=== PATIENT | male | born 1980 | race Caucasian/White ===

== ENCOUNTER → 2018-12-25 | Outpatient (CLI) | payer OTHER ==
[2018-12-25 14:38] LABS: Basophils # (A) 0.2 k/uL (0-0.2); Basophils % (A) 2 %; Eosinophils # (A) 0.2 k/uL (0-0.7); Eosinophils % (A) 2 %; HCT 46.9 % (39.0-53.0); HGB 16.4 gm/dL (13.0-17.5); Lymphocytes # (A) 1.2 k/uL (1.0-4.8); Lymphocytes % (A) 15 %; MCV 85.8 fL (80.0-100.0); Mean Platelet Volume 5.7; Monocytes # (A) 0.6 k/uL (0-1.0); Monocytes % (A) 7 %; Neutrophils # (A) 6.2 k/uL (1.3-7.7); Neutrophils % (A) 74 %; Platelet Count 210 k/uL (150-450); RBC 5.46 m/uL (4.30-5.90); RDW 12.9 % (11.5-15.5); WBC 8.4 k/uL (3.8-10.6)
[2018-12-25 18:51] LABS: African American GFR (CKD) 124.3 (60.0-200.0); Albumin 4.7 g/dL (3.80-4.90); Albumin/Globulin Ratio 2.14 (1.60-3.17); Anion Gap 8.6 mmol/L (4.00-12.00); BUN/Creat Ratio 14.44 Ratio (12.00-20.00); Calcium 9.5 mg/dL (8.7-10.3); Carbon Dioxide 25.4 mmol/L (21.6-31.8); Globulin 2.2 g/dL (1.6-3.3); Non-African American GFR(CKD) 107.2 (60.0-200.0); Potassium 4.1 mmol/L (3.5-5.5); Total Bilirubin 0.7 mg/dL (0.2-1.2); Total Protein 6.9 g/dL (6.2-8.2)
[2018-12-25 20:21] LABS: Hemoglobin A1C 5.2 % (4.0-6.0)
== END | disposition home or self-care (01) ==
LOC: LABWHC1 13:39
PROVIDERS: ATTEND Orthopaedic Surgery
DX: Z01.812 Encounter for preprocedural laboratory examination (principal); M16.11 Unilateral primary osteoarthritis, right hip
CPT/HCPCS: 36415; 80053; 83036; 85025; 87070

== ENCOUNTER 2024-08-11 11:37 | Inpatient (IN) | payer OTHER ==
--- NOTE | 2024-08-11 12:15 | ED ---
General Adult HPI - General Chief complaint: Upper Respiratory Infection Stated complaint: Coughing up blood Time Seen by Provider: 08/11/24 12:14 Source: patient, RN notes reviewed Mode of arrival: ambulatory Limitations: no limitations - History of Present Illness Initial comments: 43-year-old male presenting for episode of hemoptysis last night. States he had a stuffy nose and proceeded to take Afrin. States shortly after he coughed up mucus with streaks of dried red blood. States he had a small amount of dark red blood when he blew his nose this morning. He is otherwise asymptomatic. Denies chest pain, shortness of breath, sore throat, cough, fever. He is a non-smoker. Denies history of a blood clot. States he has no medical conditions and does not take any medications. States he was treated for strep throat about a month ago. - Related Data Home Medications Medication Instructions Recorded Confirmed predniSONE See Taper PO DIRECTED 08/11/24 08/11/24 Allergies Allergy/AdvReac Type Severity Reaction Status Date / Time No Known Allergies Allergy Verified 08/11/24 12:26 Review of Systems ROS Statement: Those systems with pertinent positive or pertinent negative responses have been documented in the HPI. ROS Other: All systems not noted in ROS Statement are negative. Past Medical History Past Medical History: No Reported History Past Surgical History: Orthopedic Surgery Past Psychological History: No Psychological Hx Reported Smoking Status: Never smoker Past Alcohol Use History: None Reported Past Drug Use History: None Reported General Exam Limitations: no limitations General appearance: alert, in no apparent distress Head exam: Present: atraumatic, normocephalic, normal inspection Eye exam: Present: normal appearance, PERRL, EOMI. Absent: scleral icterus, conjunctival injection, periorbital swelling ENT exam: Present: normal exam, mucous membranes moist Neck exam: Present: normal inspection. Absent: tenderness, meningismus, lymphadenopathy Respiratory exam: Present: normal lung sounds bilaterally. Absent: respiratory distress, wheezes, rales, rhonchi, stridor Cardiovascular Exam: Present: normal rhythm, tachycardia, normal heart sounds. Absent: systolic murmur, diastolic murmur, rubs, gallop, clicks Neurological exam: Present: alert, oriented X3 Psychiatric exam: Present: normal affect, normal mood Skin exam: Present: warm, dry, intact, normal color. Absent: rash Course Vital Signs 08/11/24 08/11/24 08/11/24 11:42 12:19 14:00 Temperature 97.9 F 98 F Pulse Rate 126 H 109 H Respiratory 22 18 16 Rate Blood Pressure 129/87 134/90 O2 Sat by Pulse 98 98 Oximetry EKG Findings - EKG Results: EKG: interpreted by KATHY (EKG reveals sinus tachycardia with inverted T waves in lead III. Ventricular rate 119 bpm, SD interval 141, QRS duration 94, QT/QTc 283/354) Medical Decision Making - Medical Decision Making Was pt. sent in by a medical professional or institution (, [facility], SENIOR SALES REPRESENTATIVE, urgent care, hospital, or [facility]...) When possible be specific @ -No Did you speak to anyone other than the patient for history (EMS, parent, family, police, friend...)? What history was obtained from this source @ -No Did you review nursing and triage notes (agree or disagree)? Why? @ -I reviewed and agree with nursing and triage notes Were old charts reviewed (outside hosp., previous admission, EMS record, old EKG, old radiological studies, urgent care reports/EKG's, [facility] records)? Report findings @ -No old charts were reviewed Differential Diagnosis (chest pain, altered mental status, abdominal pain women, abdominal pain men, vaginal bleeding, weakness, fever, dyspnea, syncope, headache, dizziness, GI bleed, back pain, seizure, CVA, palpatations, mental health, musculoskeletal)? @ -Bronchitis, allergic rhinitis, pulmonary embolism, pneumonia, tuberculosis, viral URI EKG interpreted by me (3pts min.). @ -As above X-rays interpreted by me (1pt min.). @ -Chest x-ray reveals no acute process CT interpreted by me (1pt min.). @ -CT angio revealed no pulmonary embolism however there is a moderate pericardial effusion U/S interpreted by me (1pt. min.). @ -None done What testing was considered but not performed or refused? (CT, X-rays, U/S, labs)? Why? @ -None What meds were considered but not given or refused? Why? @ -None Did you discuss the management of the patient with other professionals (professionals i.e. , [facility], SENIOR SALES REPRESENTATIVE, lab, RT, psych nurse, social work job titles, body care manager, teacher, payroll officer, manager of case management)? Give summary @ -I spoke with [facility] who accepts admission for pericardial effusion with cardiology consultation Was smoking cessation discussed for >3mins.? @ -No Was critical care preformed (if so, how long)? @ -No Were there social determinants of health that impacted care today? How? (Homelessness, low income, unemployed, alcoholism, drug addiction, transportati on, low edu. Level, literacy, decrease access to med. care, care home, rehab)? @ -No Was there de-escalation of care discussed even if they declined (Discuss DNR or withdrawal of care, Hospice)? DNR status @ -No What co-morbidities impacted this encounter? (DM, HTN, Smoking, COPD, CAD, Cancer, CVA, ARF, Chemo, Hep., AIDS, mental health diagnosis, sleep apnea, morbid obesity)? @ -None Was patient admitted / discharged? Hospital course, mention meds given and route, prescriptions, significant lab abnormalities, going to OR and other pertinent info. @ -Admitted. 43-year-old male presenting for episode of hemoptysis last night. States he was treated for strep approximately 1 month ago. Denies blood thinners. He is currently asymptomatic, denies chest pain or shortness of breath. Patient is afebrile and tachycardic at 126 bpm. Denies history of tachycardia. Patient is overall well-appearing, no acute distress. Provided with IV fluid bolus. Lab work remarkable for elevated D-dimer of 1.18, white blood cell count 10, hemoglobin normal at 13.8. Chest x-ray negative. CT angio revealed no pulmonary embolism however there is a moderate pericardial effusion. Discussed results with patient. Patient will be admitted to medicine with cardiology consultation. Echocardiogram ordered. Case was discussed with my ED attending Dr. Benitez. Undiagnosed new problem with uncertain prognosis? @ -No Drug Therapy requiring intensive monitoring for toxicity (Heparin, Nitro, Insulin, Cardizem)? @ -No Were any procedures done? @ -No Diagnosis/symptom? @ -Pericardial effusion Acute, or Chronic, or Acute on Chronic? @ -Acute Uncomplicated (without systemic symptoms) or Complicated (systemic symptoms)? @ -Uncomplicated Side effects of treatment? @ -No Exacerbation, Progression, or Severe Exacerbation? @ -No Poses a threat to life or bodily function? How? (Chest pain, [place], [place], pneumonia, PE, COPD, DKA, ARF, appy, cholecystitis, CVA, Diverticulitis, Homicidal, Suicidal, threat to staff... and all critical care pts) @ -Possibly - Lab Data Result diagrams: 08/11/24 12:24 08/11/24 12:24 Lab Results 08/11/24 08/11/24 08/11/24 Range/Units 12:18 12:24 12:24 WBC 10.73 H (4.50-10.00) 10*3/uL RBC 4.56 (4.40-5.60) 10*6/uL Hgb 13.8 (13.0-17.0) g/dL Hct 40.1 (39.6-50.0) % MCV 87.9 (80.0-97.0) fL MCH 30.3 (27.0-32.0) pg MCHC 34.4 (32.0-37.0) g/dL Plt Count 220 (140-440) 10*3/uL MPV 8.7 L (9.5-12.2) fL Immature Gran % (Auto) 0.5 % Neutrophils % 71.7 % Lymphocytes % 15.6 % Monocytes % 10.3 % Eosinophils % 1.5 % Basophils % 0.4 % Immature Gran # 0.05 H (0.00-0.04) 10*3/uL Neutrophils # 7.71 H (1.80-7.70) 10*3/uL Lymphocytes # 1.67 (0.90-5.00) 10*3/uL Monocytes # 1.10 H (0.20-1.00) 10*3/uL Eosinophils # 0.16 (0.04-0.35) 10*3/uL Basophils # 0.04 (0.00-0.10) 10*3/uL PT 11.0 (10.0-12.5) sec INR 1.0 (<1.2) APTT 25.7 (22.0-30.0) sec D-Dimer 1.18 H (<0.60) mg/L FEU Sodium (137-145) mmol/L Potassium (3.5-5.1) mmol/L Chloride (98-107) mmol/L Carbon Dioxide (22-30) mmol/L Anion Gap mmol/L BUN (9-20) mg/dL Creatinine (0.66-1.25) mg/dL Est GFR (CKD-EPI)AfAm (>60 ml/min/1.73 sqM) Est GFR (CKD-EPI)NonAf (>60 ml/min/1.73 sqM) Glucose (74-99) mg/dL Calcium (8.4-10.2) mg/dL Total Bilirubin (0.2-1.3) mg/dL AST (17-59) U/L ALT (4-49) U/L Alkaline Phosphatase (38-126) U/L Total Protein (6.3-8.2) g/dL Albumin (3.5-5.0) g/dL Influenza Type A (PCR) Not Detected (Not Detectd) Influenza Type B (PCR) Not Detected (Not Detectd) RSV (PCR) Not Detected (Not Detectd) SARS-CoV-2 (PCR) Not Detected (Not Detectd) 08/11/24 Range/Units 12:24 WBC (4.50-10.00) 10*3/uL RBC (4.40-5.60) 10*6/uL Hgb (13.0-17.0) g/dL Hct (39.6-50.0) % MCV (80.0-97.0) fL MCH (27.0-32.0) pg MCHC (32.0-37.0) g/dL Plt Count (140-440) 10*3/uL MPV (9.5-12.2) fL Immature Gran % (Auto) % Neutrophils % % Lymphocytes % % Monocytes % % Eosinophils % % Basophils % % Immature Gran # (0.00-0.04) 10*3/uL Neutrophils # (1.80-7.70) 10*3/uL Lymphocytes # (0.90-5.00) 10*3/uL Monocytes # (0.20-1.00) 10*3/uL Eosinophils # (0.04-0.35) 10*3/uL Basophils # (0.00-0.10) 10*3/uL PT (10.0-12.5) sec INR (<1.2) APTT (22.0-30.0) sec D-Dimer (<0.60) mg/L FEU Sodium 134 L (137-145) mmol/L Potassium 4.1 (3.5-5.1) mmol/L Chloride 99 (98-107) mmol/L Carbon Dioxide 27 (22-30) mmol/L Anion Gap 8 mmol/L BUN 14 (9-20) mg/dL Creatinine 1.00 (0.66-1.25) mg/dL Est GFR (CKD-EPI)AfAm >90 (>60 ml/min/1.73 sqM) Est GFR (CKD-EPI)NonAf >90 (>60 ml/min/1.73 sqM) Glucose 112 H (74-99) mg/dL Calcium 9.6 (8.4-10.2) mg/dL Total Bilirubin 0.9 (0.2-1.3) mg/dL AST 24 (17-59) U/L ALT 29 (4-49) U/L Alkaline Phosphatase 51 (38-126) U/L Total Protein 5.9 L (6.3-8.2) g/dL Albumin 3.6 (3.5-5.0) g/dL Influenza Type A (PCR) (Not Detectd) Influenza Type B (PCR) (Not Detectd) RSV (PCR) (Not Detectd) SARS-CoV-2 (PCR) (Not Detectd) Disposition Clinical Impression: Pericardial effusion Disposition: ADMITTED IP TO THIS HOSP Referrals: Aster Figueroa MD [Primary Care Provider] - 1-2 days Time of Disposition: 15:37
[2024-08-11] MEDS: SODIUM CHLORIDE 0.9% 1,000 ML IV STA (12:30)
[2024-08-11 12:50] LABS: Partial Thromboplastin Time 25.7 sec (22.0-30.0)
[2024-08-11 12:52] LABS: ALT 29 U/L (4-49); AST 24 U/L (17-59); African American GFR (CKD) >90 (>60 ml/min/1.73 sqM); Albumin 3.6 g/dL (3.5-5.0); Alkaline Phosphatase 51 U/L (38-126); Anion Gap 8 mmol/L; Blood Urea Nitrogen 14 mg/dL (9-20); Calcium 9.6 mg/dL (8.4-10.2); Carbon Dioxide 27 mmol/L (22-30); Chloride 99 mmol/L (98-107); Glucose 112 mg/dL (74-99); Non-African American GFR(CKD) >90 (>60 ml/min/1.73 sqM); Potassium 4.1 mmol/L (3.5-5.1); Sodium 134 mmol/L (137-145); Total Bilirubin 0.9 mg/dL (0.2-1.3); Total Protein 5.9 g/dL (6.3-8.2)
[2024-08-11 12:59] LABS: Influenza A Not Detected (Not Detectd); Influenza B Not Detected (Not Detectd); RSV Not Detected (Not Detectd)
--- NOTE | 2024-08-11 13:06 | XR ---
EXAMINATION TYPE: XR chest 2V DATE OF EXAM: 08/11/2024 12:45 PM COMPARISON: None. CLINICAL INDICATION: Male, 43 years old with history of hemoptysis, coughing up blood TECHNIQUE: XR chest 2V view(s) obtained. FINDINGS: The heart size is normal. The pulmonary vasculature is normal. The lungs are clear. Tracheobronchial tree as visualized appears normal IMPRESSION: 1. No acute pulmonary process. [facility], , 08/11/2024 1:04 PM
[2024-08-11 13:25] LABS: Basophils # (A) 0.04 10*3/uL (0.00-0.10); Basophils % (A) 0.4 %; Eosinophils # (A) 0.16 10*3/uL (0.04-0.35); Eosinophils % (A) 1.5 %; HCT 40.1 % (39.6-50.0); HGB 13.8 g/dL (13.0-17.0); Lymphocytes # (A) 1.67 10*3/uL (0.90-5.00); Lymphocytes % (A) 15.6 %; MCH 30.3 pg (27.0-32.0); MCHC 34.4 g/dL (32.0-37.0); MCV 87.9 fL (80.0-97.0); Mean Platelet Volume 8.7 fL (9.5-12.2); Monocytes % (A) 10.3 %; Neutrophils # (A) 7.71 10*3/uL (1.80-7.70); Neutrophils % (A) 71.7 %; Platelet Count 220 10*3/uL (140-440); RBC 4.56 10*6/uL (4.40-5.60); RDW 12.8 % (11.5-14.5); WBC 10.73 10*3/uL (4.50-10.00)
--- NOTE | 2024-08-11 14:22 | CT ---
EXAMINATION TYPE: CT angio chest DATE OF EXAM: 08/11/2024 COMPARISON: None CLINICAL INDICATION: Male, 43 years old with history of hemoptysis, elevated D-dimer; PHH, HEMOPTYSIS . ELEVATED D-DIMER TECHNIQUE: CTA scan of the thorax is performed with IV Contrast, patient injected with 100ml mL of Isovue 370, p ulmonary embolism protocol. MIP images are created and reviewed. CT DLP: [address] CTDI: mGy Automated exposure control for dose reduction was used. FINDINGS: LUNGS: The lungs are grossly clear, there is no concerning parenchymal mass or nodule identified. T here is no pleural effusion or pneumothorax seen. The tracheobronchial tree is patent. MEDIASTINUM: There is satisfactory enhancement of the pulmonary artery and its branches, there is no CT evidence for pulmonary embolism. There are no greater than 1 cm hilar or mediastinal lymph nodes. No pericardial effusion is seen. OTHER: There is a moderate pericardial effusion IMPRESSION: 1. NO PULMONARY EMBOLISM. 2. MODERATE PERICARDIAL EFFUSION [facility], , 08/11/2024 2:20 PM
[2024-08-11] MEDS ORDERED: KETOROLAC 15 MG/ML 1 ML VIAL IVP PRN (15:33)
[2024-08-11] MEDS ORDERED: ONDANSETRON 4 MG/2 ML VIAL IVP PRN (15:33)
[2024-08-11] MEDS ORDERED: NALOXONE 0.4 MG/ML 1 ML VIAL IV PRN (15:33)
[2024-08-11] MEDS: ACETAMINOPHEN TAB 325 MG TAB PO PRN (16:05)
--- NOTE | 2024-08-11 17:35 | P.HPIM ---
History of Present Illness H&P Date: 08/11/24 History of present illness; Patient is a 43-year-old male with no significant medical history presenting for episode of hemoptysis. Patient had 1 episode last night and states he had a stuffy nose and proceeded to take Afrin. He also states shortly after he coughed up mucus with streaks of dried red blood. This morning he had a small amount of dark red blood when he blew his nose. He has been taking prednisone for throat inflammation and irritation since occurrence of strep throat 1 to 2 months ago. He states that pain is worse while laying back and with deep inspiration. He is otherwise asymptomatic and denies chest pain, shortness of breath, sore throat, cough, fever. He is a non-smoker. He reports no other exposure to tuberculosis, no history of autoimmune disease or malignancy. States he has no medical conditions and does not take any medications. Spoke with the ER physician, patient admission was accepted by internal medicine service for treatment. REVIEW OF SYSTEMS: Pertinent positives and negatives noted in HPI. PHYSICAL EXAMINATION: VITAL SIGNS: Reviewed GENERAL: Resting comfortably in bed. CARDIOVASCULAR: S1 and S2 present. No murmurs, rubs, or gallops. PULMONARY: Chest is clear to auscultation, no wheezing, rhonchi, or crackles. ABDOMEN: Soft, nontender, nondistended. No palpable organomegaly. NEUROLOGICAL: Alert and oriented. Gross neurological examination with no apparent focal deficits. EXTREMITIES: No pedal edema. SKIN: No apparent rashes. ER FINDINGS: Labs significant for WBC 10.7, D-dimer 1.18, sodium 134, glucose 112, viral respiratory panel negative EKG independently interpreted showed sinus tachycardia heart rate of 119, QTc 35 4, no ST segment elevation or depression seen, nonspecific T wave abnormality. Chest x-ray done independently interpreted showed no acute cardiopulmonary process. CT angiogram chest with findings of no pulmonary embolism, moderate pericardial effusion ASSESSMENT AND PLAN: In summary, patient is a 43-year-old male with no significant medical history presenting for episode of hemoptysis. #Acute pericarditis with pericardial effusion CT angiogram chest with moderate pericardial effusion seen Continuous cardiac monitoring Echocardiogram ordered Troponin, TSH, coxsachie b, parvovirus b19, EBV, HIV, CMV, NILA, anti-CCP, compliments 3,4,50 , ESR, CRP, ANCAs, RF ordered Cardiology consulted #Hemoptysis, likely due to chronic throat inflammation - CT neck soft tissue w/ contrast Monitor CBC #Leukocytosis, likey do to steroid use -Monitor CBC Chronic Medical Conditions: -No home medications DVT ppx: Early ambulation Code status: Full code F: P.o. E: Replete as needed N: Regular diet A: Ambulatory Anticipated discharge time and place: Pending clinical course Ash Vieyra MD Internal Medicine Resident, PGY1 Dictation was produced using [employer] dictation software. Please excuse any grammatical, word or spelling errors. I saw and evaluated the patient during the vazquez and critical portions of this encounter, and discussed the case in detail with the resident author of this note, I agree with the Assessment and Plan, and my changes, if any, are highlighted in blue. Past Medical History Past Medical History: No Reported History Past Surgical History: Orthopedic Surgery Past Psychological History: No Psychological Hx Reported Smoking Status: Never smoker Past Alcohol Use History: None Reported Past Drug Use History: None Reported Medications and Allergies Home Medications Medication Instructions Recorded Confirmed Type predniSONE See Taper PO DIRECTED 08/11/24 08/11/24 History Allergies Allergy/AdvReac Type Severity Reaction Status Date / Time No Known Allergies Allergy Verified 08/11/24 12:26 Physical Exam Osteopathic Statement: *. No significant issues noted on an osteopathic struc tural exam other than those noted in the History and Physical/Consult. Vitals: Vital Signs Temp Pulse Resp BP Pulse Ox 08/11/24 15:45 100 F H 113 H 16 138/88 98 08/11/24 14:00 98 F 109 H 16 134/90 98 08/11/24 12:19 18 08/11/24 11:42 97.9 F 126 H 22 129/87 98 Intake and Output 08/11/24 08/11/24 08/11/24 06:59 14:59 22:59 Other: Weight 145.15 kg Results CBC & Chem 7: 08/11/24 12:24 08/11/24 12:24 Labs: Abnormal Lab Results - Last 24 Hours (Table) 08/11/24 08/11/24 08/11/24 Range/Units 12:24 12:24 12:24 WBC 10.73 H (4.50-10.00) 10*3/uL MPV 8.7 L (9.5-12.2) fL Immature Gran # 0.05 H (0.00-0.04) 10*3/uL Neutrophils # 7.71 H (1.80-7.70) 10*3/uL Monocytes # 1.10 H (0.20-1.00) 10*3/uL D-Dimer 1.18 H (<0.60) mg/L FEU Sodium 134 L (137-145) mmol/L Glucose 112 H (74-99) mg/dL Total Protein 5.9 L (6.3-8.2) g/dL
[2024-08-11 18:54] LABS: C Reactive Protein 6.4 mg/dL (<1.0)
--- NOTE | 2024-08-11 21:48 | CT ---
EXAMINATION TYPE: CT soft tissue neck w con DATE OF EXAM: 08/11/2024 6:30 PM COMPARISON: None. CLINICAL INDICATION: Male, 43 years old with history of painful swallowing, pericardial effusion, rec ent strep TECHNIQUE: Axial images at 3 mm thick sections. Reconstructed images in the coronal plane and sagitt al plane are reviewed. Contrast used:65 mL of Isovue 300 with IV Contrast, (none if empty) Oral contrast used: (none if empty) CT DLP: 316.2 mGycm, Automated exposure control for dose reduction was used. FINDINGS: Limited CT sections are obtained the lung apices. The lung apices appear clear. CT neck: The torus tubarius and fossa of Rosenmuller are normal. [employer] spaces are normal. Para nasal sinuses and mastoid air cells are clear. Parotid glands appear normal and symmetrical. Submandibular glands, are normal. Parapharyngeal spac es are normal. No suspicious enlarged adenopathy is evident. There may be some minimal fullness of the left wall of the hypopharynx extending towards the tonsilla r pillar. Direct visualization is recommended. Focal cortical) the time of exam cannot be evaluated Thyroid as visualized is normal. Osseous structures are normal. There is some mild loss of disc height at C5-6 C6-7. IMPRESSION: 1. There may be some mild wall thickening along the left hypopharynx extending from the tonsillar pil lar. Direct visualization recommended. 2. No discrete masses are identified. Abnormal adenopathy is not evident. [facility], , 08/11/2024 9:46 PM
[2024-08-11] MEDS: MELATONIN 3 MG TABLET PO PRN (22:23)
[2024-08-12 02:37] LABS: Rheumatoid Factor, Qnt <15 IU/mL (0-15)
[2024-08-12 04:10] LABS: EBV-EA (IgG) <0.2 AI; EBV-EBNA(IgG) >8.0; EBV-VCA (IgG) >8.0 AI; EBV-VCA (IgM) <0.2 AI
[2024-08-12 04:23] LABS: HIV 2 AB Non-Reactive (Non-Reactive); HIV AB P24 Non-Reactive (Non-Reactive); HIV P24 AG Non-Reactive (Non-Reactive)
[2024-08-12 06:46] LABS: HCT 38.4 % (39.6-50.0); HGB 12.9 g/dL (13.0-17.0); MCHC 33.6 g/dL (32.0-37.0); MCV 89.3 fL (80.0-97.0); Mean Platelet Volume 8.6 fL (9.5-12.2); Platelet Count 212 10*3/uL (140-440); RDW 12.6 % (11.5-14.5); WBC 8.27 10*3/uL (4.50-10.00)
[2024-08-12 07:19] LABS: African American GFR (CKD) >90 (>60 ml/min/1.73 sqM); Anion Gap 6 mmol/L; Blood Urea Nitrogen 12 mg/dL (9-20); Calcium 8.6 mg/dL (8.4-10.2); Carbon Dioxide 25 mmol/L (22-30); Chloride 105 mmol/L (98-107); Glucose 113 mg/dL (74-99); Non-African American GFR(CKD) >90 (>60 ml/min/1.73 sqM); Sodium 136 mmol/L (137-145)
[2024-08-12] MEDS: COLCHICINE 0.6 MG EACH PO SCH (09:19)
[2024-08-12] MEDS: INDOMETHACIN 25 MG CAP PO SCH (09:19)
--- NOTE | 2024-08-12 10:40 | P.PN ---
Subjective Progress Note Date: 08/12/24 History of present illness; Patient is a 43-year-old male with no significant medical history presenting for episode of hemoptysis. Patient had 1 episode last night and states he had a stuffy nose and proceeded to take Afrin. He also states blew his nose with mucus with streaks of dried red blood. This morning he had a small amount of dark red blood when he blew his nose. He has been taking prednisone for throat inflammation and irritation since occurrence of strep throat 1 to 2 months ago. He states that pain is worse while laying back and with deep inspiration. He is otherwise asymptomatic and denies chest pain, shortness of breath, sore throat, cough, fever. He is a non-smoker. He reports no other exposure to tuberculosis, no history of autoimmune disease or malignancy. States he has no medical conditions and does not take any medications. 08/12/2024patient seen and examined at bedside. He continues to endorse some neck pain while extending neck, otherwise no chest pain shortness of breath at this time. Continues to have throat irritation, able to swallow without issue. No further episodes of blood with mucus. REVIEW OF SYSTEMS: Pertinent positives and negatives noted in HPI. PHYSICAL EXAMINATION: VITAL SIGNS: Reviewed GENERAL: Resting comfortably in bed. NECK: No palpable lymph nodes, throat nonerythematous CARDIOVASCULAR: S1 and S2 present. No murmurs, rubs, or gallops. PULMONARY: Chest is clear to auscultation, no wheezing, rhonchi, or crackles. ABDOMEN: Soft, nontender, nondistended. No palpable organomegaly. NEUROLOGICAL: Alert and oriented. Gross neurological examination with no apparent focal deficits. EXTREMITIES: No pedal edema. SKIN: No apparent rashes. Today's significant FINDINGS: Labs significant for CBC unremarkable, ESR 34, CRP 6.4, rheumatological and infectious workup positive for EBV IgG, otherwise negative thus far CT soft tissue neck mild wall thickening along the left hypopharynx extending from the tonsillar pillar, no discrete masses or abnormal adenopathy. ASSESSMENT AND PLAN: In summary, patient is a 43-year-old male with no significant medical history presenting for episode of hemoptysis. #Acute pericarditis with pericardial effusion CT angiogram chest with moderate pericardial effusion seen Continuous cardiac monitoring Echocardiogram ordered Troponin, TSH, coxsachie b, parvovirus b19, EBV, HIV, CMV, NILA, anti-CCP, compliments 3,4,50 , ESR, CRP, ANCAs, RF, complete viral panal ordered Begin colchicine and Indocin Cardiology consulted - patient claims that he had strep throat few months ago #Hemoptysis, likely due to chronic throat inflammation #Paty-Mora virus infection, likely old - CT neck soft tissue w/ contrast w/ mild wall thickening along the left hypopharynx extending from the tonsillar pillar - positive for EBV IgG Monitor CBC Pulmonology consult for possible bronchoscopy #Leukocytosis, likey do to steroid use, improved Chronic Medical Conditions: -No home medications DVT ppx: Early ambulation Code status: Full code F: P.o. E: Replete as needed N: Regular diet A: Ambulatory Anticipated discharge time and place: Pending clinical course Ash Vieyra MD Internal Medicine Resident, PGY1 Dictation was produced using [employer] dictation software. Please excuse any grammatical, word or spelling errors. I have seen and evaluated the patient today. I reviewed the resident's note and agree. Changes are highlighted in blue font. Objective - Vital Signs Vital signs: Vital Signs Temp 98.0 F 08/12/24 04:18 Pulse 89 08/12/24 04:18 Resp 16 08/12/24 04:18 BP 123/78 08/12/24 04:18 Pulse Ox 98 08/12/24 04:18 FiO2 Intake & Output 08/11/24 08/11/24 08/12/24 06:59 18:59 06:59 Weight 145.15 kg 146.8 kg Other: # Voids 1 - Labs CBC & Chem 7: 08/12/24 06:06 08/12/24 06:06 Labs: Abnormal Lab Results - Last 24 Hours (Table) 08/11/24 08/11/24 08/11/24 Range/Units 12:24 12:24 12:24 WBC 10.73 H (4.50-10.00) 10*3/uL RBC (4.40-5.60) 10*6/uL Hgb (13.0-17.0) g/dL Hct (39.6-50.0) % MPV 8.7 L (9.5-12.2) fL Immature Gran # 0.05 H (0.00-0.04) 10*3/uL Neutrophils # 7.71 H (1.80-7.70) 10*3/uL Monocytes # 1.10 H (0.20-1.00) 10*3/uL ESR (0-15) mm/Hr D-Dimer 1.18 H (<0.60) mg/L FEU Sodium 134 L (137-145) mmol/L Glucose 112 H (74-99) mg/dL C-Reactive Protein (<1.0) mg/dL Total Protein 5.9 L (6.3-8.2) g/dL EBV Capsid Ag IgG Intrp (Negative) EBV Nuc Ag IgG Interp (Negative) 08/11/24 08/11/24 08/11/24 Range/Units 18:05 18:05 18:05 WBC (4.50-10.00) 10*3/uL RBC (4.40-5.60) 10*6/uL Hgb (13.0-17.0) g/dL Hct (39.6-50.0) % MPV (9.5-12.2) fL Immature Gran # (0.00-0.04) 10*3/uL Neutrophils # (1.80-7.70) 10*3/uL Monocytes # (0.20-1.00) 10*3/uL ESR 34 H (0-15) mm/Hr D-Dimer (<0.60) mg/L FEU Sodium (137-145) mmol/L Glucose (74-99) mg/dL C-Reactive Protein 6.4 H (<1.0) mg/dL Total Protein (6.3-8.2) g/dL EBV Capsid Ag IgG Intrp Positive A (Negative) EBV Nuc Ag IgG Interp Positive A (Negative) 08/12/24 Range/Units 06:06 WBC (4.50-10.00) 10*3/uL RBC 4.30 L (4.40-5.60) 10*6/uL Hgb 12.9 L (13.0-17.0) g/dL Hct 38.4 L (39.6-50.0) % MPV 8.6 L (9.5-12.2) fL Immature Gran # (0.00-0.04) 10*3/uL Neutrophils # (1.80-7.70) 10*3/uL Monocytes # (0.20-1.00) 10*3/uL ESR (0-15) mm/Hr D-Dimer (<0.60) mg/L FEU Sodium (137-145) mmol/L Glucose (74-99) mg/dL C-Reactive Protein (<1.0) mg/dL Total Protein (6.3-8.2) g/dL EBV Capsid Ag IgG Intrp (Negative) EBV Nuc Ag IgG Interp (Negative)
--- NOTE | 2024-08-12 13:24 | P.CRDCN ---
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 We have been asked to evaluate the patient for pericardial effusion. Patient gives history of having strep throat 1 month ago. He is also had some pressure in his chest on the upper anterior area. It is most severe when he takes a deep inhalation. He denies any pain when he moves forward. He does have some worsening of the pain when he lays back on the bed. He has been through at least 2 courses of prednisone. He also was concerned that he had a recent bouts of poison dash but it may be that he had a rash related to the strep throat. He denies history of tobacco use, alcohol use or illicit drug use. Blood pressure 130/79, heart rate 107, pulse ox 96% on room air. Patient presented to the hospital due to hemopty sis. -EKG: Sinus tachycardia no acute ST-T wave changes. -Chest x-ray: No acute process -CT soft tissue of the neck: Mild wall thickening along the left hypopharynx extending from the tonsillar pillar. No discrete masses identified. Abnormal adenopathy is not evident. -CTA chest: No pulmonary embolism. Moderate pericardial effusion. -Laboratory studies: WBC 10.7 now 8.2, hemoglobin 12.9, sed rate 34, CRP 6.4. Troponin negative x 1. Sodium 136, electrolytes otherwise are normal. Renal function normal. TSH 1.560. EBV IgG positive. Cepheid viral panel not detected. Group A strep not detected. -Home cardiac medications: None. Review Of Systems: At the time of my exam: CONSTITUTIONAL: Denies fever or chills. HEENT: Denies blurred vision, vision changes, or eye pain. Denies hemoptysis CARDIOVASCULAR: Denies chest pain. Denies orthopnea. Denies PND. Denies palpitations RESPIRATORY: Denies shortness of breath. GASTROINTESTINAL: Denies abdominal pain. Denies nausea or vomiting. HEMATOLOGIC: Denies bleeding disorders. GENITOURINARY: Denies any blood in urine. SKIN: Denies puritis. Denies rash. Physical examination: Gen: This is a 43-year-old male in no acute distress VS: reviewed HEENT: Head is atraumatic, normocephalic. Pupils equal, round. Sclerae is anicteric. NECK: Supple. No JVD. LUNGS: Clear to auscultation. No wheezes or rhonchi. No intercostal retractions. HEART: Regular rate and rhythm. No murmur. ABDOMEN: Soft No tenderness. EXTREMITIES: No pedal edema. No calf tenderness. NEUROLOGICAL: Patient is awake, alert and oriented x3. Assessment: Pericarditis, acute or subacute Moderate pericardial effusion Paty bar virus infection recent Plan: Start patient on colchicine 0.6 mg twice daily Start Indocin 25 mg 3 times daily Obtain 2-D echocardiogram and Doppler study to assess cardiac structure and function Further recommendations to follow based upon clinical course Thank you kindly for this consultation. Nurse practitioner note has been reviewed, I agree with documented findings and plan of care. Patient was seen and examined. Past Medical History Past Medical History: No Reported History History of Any Multi-Drug Resistant Organisms: None Reported Past Surgical History: Orthopedic Surgery Past Anesthesia/Blood Transfusion Reactions: No Reported Reaction Past Psychological History: No Psychological Hx Reported Smoking Status: Never smoker Past Alcohol Use History: None Reported Past Drug Use History: None Reported - Past Family History Mother Family Medical History: No Reported History Father Family Medical History: Cancer Medications and Allergies Home Medications Medication Instructions Recorded Confirmed Type predniSONE See Taper PO DIRECTED 08/11/24 08/11/24 History Allergies Allergy/AdvReac Type Severity Reaction Status Date / Time No Known Allergies Allergy Verified 08/11/24 12:26 Physical Exam Vitals: Vital Signs Temp Pulse Pulse Pulse Resp BP BP 08/12/24 04:18 98.0 F 89 16 123/78 08/12/24 00:44 16 08/11/24 22:58 98.4 F 97 16 138/89 08/11/24 20:50 16 08/11/24 19:44 98.3 F 109 H 16 138/89 08/11/24 18:07 99.1 F 115 H 115 H 16 130/81 08/11/24 16:52 99.1 F 107 H 16 134/84 08/11/24 16:09 112 H 16 131/85 08/11/24 15:45 100 F H 113 H 16 138/88 08/11/24 14:00 98 F 109 H 16 134/90 08/11/24 12:19 18 08/11/24 11:42 97.9 F 126 H 22 129/87 Pulse Ox 08/12/24 04:18 98 08/12/24 00:44 08/11/24 22:58 97 08/11/24 20:50 08/11/24 19:44 97 08/11/24 18:07 96 08/11/24 16:52 98 08/11/24 16:09 98 08/11/24 15:45 98 08/11/24 14:00 98 08/11/24 12:19 08/11/24 11:42 98 Intake and Output 08/11/24 08/12/24 08/12/24 22:59 06:59 14:59 Other: # Voids 1 Weight 145.15 kg 146.8 kg Results 08/12/24 06:06 08/12/24 06:06 Cardiac Enzymes 08/11/24 08/11/24 Range/Units 12:24 15:45 AST 24 (17-59) U/L Troponin I <0.012 (0.000-0.034) ng/mL Coagulation 08/11/24 Range/Units 12:24 PT 11.0 (10.0-12.5) sec APTT 25.7 (22.0-30.0) sec CBC 08/11/24 08/12/24 Range/Units 12:24 06:06 WBC 10.73 H 8.27 (4.50-10.00) 10*3/uL RBC 4.56 4.30 L (4.40-5.60) 10*6/uL Hgb 13.8 12.9 L (13.0-17.0) g/dL Hct 40.1 38.4 L (39.6-50.0) % Plt Count 220 212 (140-440) 10*3/uL Comprehensive Metabolic Panel 08/11/24 08/12/24 Range/Units 12:24 06:06 Sodium 134 L 136 L (137-145) mmol/L Potassium 4.1 4.0 (3.5-5.1) mmol/L Chloride 99 105 (98-107) mmol/L Carbon Dioxide 27 25 (22-30) mmol/L BUN 14 12 (9-20) mg/dL Creatinine 1.00 0.91 (0.66-1.25) mg/dL Glucose 112 H 113 H (74-99) mg/dL Calcium 9.6 8.6 (8.4-10.2) mg/dL AST 24 (17-59) U/L ALT 29 (4-49) U/L Alkaline Phosphatase 51 (38-126) U/L Total Protein 5.9 L (6.3-8.2) g/dL Albumin 3.6 (3.5-5.0) g/dL Current Medications Generic Name Dose Route Start Last Admin Trade Name Freq PRN Reason Stop Dose Admin Acetaminophen 650 mg 08/11/24 15:50 08/11/24 16:05 Acetaminophen Tab 325 Mg Tab PO 650 mg Q6HR PRN Administration Mild Pain or Fever > 100.5 Ketorolac Tromethamine 15 mg 08/11/24 15:33 Ketorolac 15 Mg/Ml 1 Ml Vial IVP 08/14/24 15:35 Q6HR PRN Moderate Pain (Scale 4 to 6) Melatonin 3 mg 08/11/24 22:13 08/11/24 22:23 Melatonin 3 Mg Tablet PO 3 mg HS PRN Administration Insomnia Naloxone HCl 0.2 mg 08/11/24 15:33 Naloxone 0.4 Mg/Ml 1 Ml Vial IV Q2M PRN Opioid Reversal Ondansetron HCl 4 mg 08/11/24 15:33 Ondansetron 4 Mg/2 Ml Vial IVP Q8HR PRN Nausea And Vomiting Intake and Output 08/11/24 08/12/24 08/12/24 22:59 06:59 14:59 Other: # Voids 1 Weight 145.15 kg 146.8 kg 08/12/24 06:06 08/12/24 06:06
--- NOTE | 2024-08-12 16:07 | P.CNPUL ---
History of Present Illness Consult date: 08/12/24 Requesting physician: Ash Vieyra Reason for consult: other (Blood-tinged sputum) Chief complaint: Hemoptysis History of present illness: This is a very pleasant 43-year-old male patient who has no significant past medical history. And no prescribed home medications. He did smoke lightly for about 10 years but quit 10 years ago. He presented here to the the emergency room yesterday after a 2-month history of sore throat. He states he has had strep throat in the past and it felt similar. He was treated in the outpatient setting on amoxicillin without much improvement. He was then on prednisone on 2 separate occasions without much improvement. He also thought he was coughing up blood that he felt was related to his sinuses as he had sinus congestion and was using Afrin nasal spray. He did state he had some throat and chest discomfort with deep inhalation. Chest x-ray showed no acute pulmonary process. CT angiogram ruled out pulmonary embolism. There is a moderate pericardial effusion. CT scan of the neck revealed a mild wall thickening along the left hypopharynx extending from the tonsillar pillar. No discrete masses identified. No abnormal adenopathy. White count 8.2. Hemoglobin 12.9. Platelets 212. Sodium 136. Potassium 4.0. Bicarb 25. BUN 12. Creatinine 0.91. Glucose 113. Rheumatoid factor was negative. NILA and a screen was negative. He did test positive for a probable previous Paty-Mora virus however his IgM is negative. Echocardiogram is pending. He is seen today in consultation on the selective care unit. He is currently sitting up in bed. Awake and alert in no acute distress. Maintaining good O2 saturations in the 90s on room air oxygen. No fever. No chills. No further blood from his nose and no productive sputum. Review of Systems REVIEW OF SYSTEMS: CONSTITUTIONAL: Denies any recent significant weight loss or weight gain. EYES: Denies change in vision. EARS, NOSE, MOUTH, THROAT: Positive for sore throat. Positive for sinus congestion and epistaxis. CARDIOVASCULAR: Positive for chest discomfort on deep inhalation, no palpitations or syncopal episodes. RESPIRATORY: Denies shortness of breath, cough, congestion or hemoptysis. GASTROINTESTINAL: Denies change in appetite, denies abdominal pain GENITOURINARY: Denies hematuria, denies infections. MUSKULOSKELETAL: Denies pain, denies swelling. INTEGUMENTARY: Denies rash, denies eczema. NEUROLOGICAL: Denies recent memory loss, no recent seizure activity. PSYCHIATRIC: Denies anxiety, denies depression. HEMATOLOGIC/LYMPHATIC: Denies anemia, denies enlarged lymph nodes. Past Medical History Past Medical History: No Reported History History of Any Multi-Drug Resistant Organisms: None Reported Past Surgical History: Orthopedic Surgery Past Anesthesia/Blood Transfusion Reactions: No Reported Reaction Past Psychological History: No Psychological Hx Reported Smoking Status: Never smoker Past Alcohol Use History: None Reported Past Drug Use History: None Reported - Past Family History Mother Family Medical History: No Reported History Father Family Medical History: Cancer Medications and Allergies Home Medications Medication Instructions Recorded Confirmed Type predniSONE See Taper PO DIRECTED 08/11/24 08/11/24 History Allergies Allergy/AdvReac Type Severity Reaction Status Date / Time No Known Allergies Allergy Verified 08/11/24 12:26 Physical Exam Vitals: Vital Signs Temp Pulse Pulse Pulse Resp BP BP 08/12/24 14:00 98 16 08/12/24 12:00 98 129/84 08/12/24 08:00 98.2 F 107 H 16 130/79 08/12/24 04:18 98.0 F 89 16 123/78 08/12/24 00:44 16 08/11/24 22:58 98.4 F 97 16 138/89 08/11/24 20:50 16 08/11/24 19:44 98.3 F 109 H 16 138/89 08/11/24 18:07 99.1 F 115 H 115 H 16 130/81 08/11/24 16:52 99.1 F 107 H 16 134/84 08/11/24 16:09 112 H 16 131/85 Pulse Ox 08/12/24 14:00 08/12/24 12:00 97 08/12/24 08:00 96 08/12/24 04:18 98 08/12/24 00:44 08/11/24 22:58 97 08/11/24 20:50 08/11/24 19:44 97 08/11/24 18:07 96 08/11/24 16:52 98 08/11/24 16:09 98 Intake and Output 08/12/24 08/12/24 08/12/24 06:59 14:59 22:59 Intake Total 118 Balance 118 Intake: Oral 118 Other: # Voids 1 Weight 146.8 kg GENERAL EXAM: Alert, active, pleasant 43-year-old male, on room air oxygen, comfortable in no apparent distress. HEAD: Normocephalic. EYES: Normal reaction of pupils, equal size. NOSE: Clear with pink turbinates. THROAT: No erythema or exudates. NECK: No masses, no JVD. CHEST: No chest wall deformity. LUNGS: Equal air entry with no crackles, wheeze, rhonchi or dullness. CVS: S1 and S2 normal with no audible murmur, regular rhythm. ABDOMEN: No hepatosplenomegaly, normal bowel sounds, no guarding or rigidity. SPINE: No scoliosis or deformity SKIN: No rashes CENTRAL NERVOUS SYSTEM: No focal deficits, tone is normal in all 4 extremities. EXTREMITIES: There is no peripheral edema. No clubbing, no cyanosis. Peripheral pulses are intact. Results - Laboratory Findings CBC and BMP: 08/12/24 06:06 08/12/24 06:06 PT/INR, D-dimer PT 11.0 sec (10.0-12.5) 08/11/24 12:24 INR 1.0 (<1.2) 08/11/24 12:24 D-Dimer 1.18 mg/L FEU (<0.60) H 08/11/24 12:24 Abnormal lab findings: Abnormal Labs 08/11/24 08/11/24 08/11/24 12:24 12:24 12:24 WBC 10.73 H RBC Hgb Hct MPV 8.7 L Immature Gran # 0.05 H Neutrophils # 7.71 H Monocytes # 1.10 H ESR D-Dimer 1.18 H Sodium 134 L Glucose 112 H C-Reactive Protein Total Protein 5.9 L EBV Capsid Ag IgG Intrp EBV Nuc Ag IgG Interp 08/11/24 08/11/24 08/11/24 18:05 18:05 18:05 WBC RBC Hgb Hct MPV Immature Gran # Neutrophils # Monocytes # ESR 34 H D-Dimer Sodium Glucose C-Reactive Protein 6.4 H Total Protein EBV Capsid Ag IgG Intrp Positive A EBV Nuc Ag IgG Interp Positive A 08/12/24 08/12/24 06:06 06:06 WBC RBC 4.30 L Hgb 12.9 L Hct 38.4 L MPV 8.6 L Immature Gran # Neutrophils # Monocytes # ESR D-Dimer Sodium 136 L Glucose 113 H C-Reactive Protein Total Protein EBV Capsid Ag IgG Intrp EBV Nuc Ag IgG Interp - Diagnostic Findings Chest x-ray: image reviewed CT scan - chest: image reviewed Assessment and Plan Assessment: Chest discomfort on deep inhalation secondary to suspected viral myocarditis. Moderate pericardial effusion noted on CT scan. Echocardiogram pending Recent viral syndrome, rhinitis/pharyngitis and failed outpatient therapy with amoxicillin and steroids. Possible recent Paty-Mora virus however IgM is negative Nasal congestion and drainage with bleeding from the nose. No evidence of hemoptysis Mild wall thickening along the left hypothenar hypopharynx extending from the tonsillar pillar. No discrete masses identified. No adenopathy Former smoker however quit 10 years ago Plan: The patient was seen and evaluated All imaging, labs and medications reviewed Most likely sinus drainage and epistaxis versus hemoptysis CT scan of the neck reviewed Recommend outpatient workup with ENT Echocardiogram pending Possible viral myocarditis Continue Colcrys Continue Indocin Stable and on room air oxygen We will continue to follow and make further recommendations based on his clinic al status I have personally seen and examined the patient, performed the documentation and the assessment and plan as written. Number of minutes spent on the visit: 20 Dictation was produced using [employer] dictation software. Please excuse any grammatical, word or spelling errors. Time with Patient: Greater than 30
--- NOTE | 2024-08-12 19:15 | CA ---
Transthoracic Echo Report Name: Quinton Parnell Age: 43 Gender: M : 1980 Exam Date: 08/12/2024 15:00 Exam Location: [facility] Ht (in): 77 Wt (lb): 320 Ordering Physician: Grace Barragan Attending/Referring Phys: Process Engineer Shira Vargas RDCS Procedure CPT: Indications: pericardial effusion Cardiac Hx: Technical Quality: Fair Contrast 1: Definity Total Dose (mL): 2 Contrast 2: Total Dose (mL): MEASUREMENTS (Male / Female) Normal Values 2D ECHO LV Diastolic Diameter PLAX 6.3 cm 4.2 - 5.9 / 3.9 - 5.3 cm LV Systolic Diameter PLAX 5.2 cm IVS Diastolic Thickness 0.9 cm 0.6 - 1.0 / 0.6 - 0.9 cm LVPW Diastolic Thickness 0.9 cm 0.6 - 1.0 / 0.6 - 0.9 cm LV Relative Wall Thickness 0.3 RV Internal Dim ED PLAX 2.3 cm LA Systolic Diameter LX 4.0 cm 3.0 - 4.0 / 2.7 - 3.8 cm LV Diastolic Volume MOD 4C 168.1 cm??? LV Systolic Volume MOD 4C 108.8 cm??? LV Ejection Fraction MOD 4C 35.3 % LV Cardiac Index MOD 4C 2034.2 cm???/min???m??? LV Diastolic Length 4C 9.9 cm LV Systolic Length 4C 8.5 cm M-MODE Aortic Root Diameter MM 3.4 cm LA Systolic Diameter MM 3.7 cm LA Ao Ratio MM 1.1 AV Cusp Separation MM 2.5 cm DOPPLER TR Peak Velocity 238.2 cm/s TR Peak Gradient 22.7 mmHg FINDINGS Left Ventricle Left ventricular ejection fraction is estimated at 30-35 %. Mildly increased left ventricular diastolic diameter. Mild left ventricular dilatation. Severely reduced global left ventricular systolic function. Right Ventricle Mild right ventricular dilatation. Right ventricular systolic pressure within normal limits. Right Atrium Mild right atrial dilatation. Left Atrium Mild left atrial dilatation. Mitral Valve Structurally normal mitral valve. Mild mitral regurgitation. No mitral stenosis. Aortic Valve Trileaflet aortic valve. No aortic stenosis. No aortic regurgitation. Tricuspid Valve Structurally normal tricuspid valve. mild tricuspid regurgitation. No tricuspid stenosis. Pulmonic Valve Structurally normal pulmonic valve. No pulmonic regurgitation. No pulmonic stenosis. Pericardium Mild-Moderate pericardial effusion. No pleural effusion. Aorta Normal size aortic root and proximal ascending aorta. CONCLUSIONS Definity ECHO contrast used for improved visualization of the endocardial borders (inadequate visualization of two or more contiguous segments). Severe global hypokinesis of the left ventricle with dilated left ventricle Mild mitral and tricuspid regurgitation Small to moderate pericardial effusion Previewed by: Dr. Harry Carrion MD (Electronically Signed) Final Date: 12 August 2024 19:14
[2024-08-13 06:12] LABS: HCT 40.1 % (39.6-50.0); MCH 31.2 pg (27.0-32.0); MCHC 34.9 g/dL (32.0-37.0); MCV 89.3 fL (80.0-97.0); Mean Platelet Volume 8.5 fL (9.5-12.2); Platelet Count 238 10*3/uL (140-440); RBC 4.49 10*6/uL (4.40-5.60); RDW 12.2 % (11.5-14.5)
[2024-08-13 06:34] LABS: African American GFR (CKD) >90 (>60 ml/min/1.73 sqM); Anion Gap 6 mmol/L; Blood Urea Nitrogen 13 mg/dL (9-20); Carbon Dioxide 25 mmol/L (22-30); Chloride 105 mmol/L (98-107); Glucose 99 mg/dL (74-99); Non-African American GFR(CKD) >90 (>60 ml/min/1.73 sqM); Potassium 4.3 mmol/L (3.5-5.1); Sodium 136 mmol/L (137-145)
[2024-08-13] MEDS: DAPAGLIFLOZIN PROPANEDIOL 10 MG TABLET PO SCH (12:02)
[2024-08-13] MEDS: METOPROLOL SUCCINATE (ER) 25 MG TAB.ER.24H PO SCH (12:02)
[2024-08-13] MEDS: lisinopriL 5 MG TAB PO SCH (12:03)
[2024-08-13 12:17] LABS: C-ANCA <1:20 Titer (<1:20)
--- NOTE | 2024-08-13 12:38 | P.PN ---
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 We have been asked to evaluate the patient for pericardial effusion. Patient gives history of having strep throat 1 month ago. He is also had some pressure in his chest on the upper anterior area. It is most severe when he takes a deep inhalation. He denies any pain when he moves forward. He does have some worsening of the pain when he lays back on the bed. He has been through at least 2 courses of prednisone. He also was concerned that he had a recent bouts of poison dash but it may be that he had a rash related to the strep throat. He denies history of tobacco use, alcohol use or illicit drug use. Blood pressure 130/79, heart rate 107, pulse ox 96% on room air. Patient presented to the hospital due to hemoptysis. -EKG: Sinus tachycardia no acute ST-T wave changes. -Chest x-ray: No acute process -CT soft tissue of the neck: Mild wall thickening along the left hypopharynx extending from the tonsillar pillar. No discrete masses identified. Abnormal adenopathy is not evident. -CTA chest: No pulmonary embolism. Moderate pericardial effusion. -Laboratory studies: WBC 10.7 now 8.2, hemoglobin 12.9, sed rate 34, CRP 6.4. Troponin negative x 1. Sodium 136, electrolytes otherwise are normal. Renal function normal. TSH 1.560. EBV IgG positive. Cepheid viral panel not detected. Group A strep not detected. -Home cardiac medications: None. 08/13/2024 Patient seen and examined. Echocardiogram reveals EF 30-35%. Severe global hypokinesis of the left ventricle with dilated left ventricle. Mild mitral and tricuspid regurgitation. Small to moderate pericardial effusion. Patient is had no previous echocardiogram for comparison. He states he is not really feeling any better with the colchicine and Indocin. He seemed to get more relief from prednisone. Blood pressure 120/77, heart rate 92, pulse ox 97% on room air. Results of echocardiogram reviewed with the patient. Physical examination: Gen: This is a 43-year-old male in no acute distress VS: reviewed HEENT: Head is atraumatic, normocephalic. Pupils equal, round. Sclerae is anicteric. NECK: Supple. No JVD. LUNGS: Clear to auscultation. No wheezes or rhonchi. No intercostal retractions. HEART: Regular rate and rhythm. No murmur. ABDOMEN: Soft No tenderness. EXTREMITIES: No pedal edema. No calf tenderness. NEUROLOGICAL: Patient is awake, alert and oriented x3. Assessment: Pericarditis, acute or subacute Small to moderate pericardial effusion Paty bar virus infection recent Cardiomyopathy possibly secondary to viral infection Plan: Continue patient on colchicine 0.6 mg twice daily and Indocin 25 mg 3 times daily Plan to monitor patient overnight and discharge home tomorrow. Further recommendations to follow based upon clinical course Nurse practitioner note has been reviewed, I agree with documented findings and plan of care. Patient was seen and examined. Objective - Vital Signs Vital signs: Vital Signs Temp 97.7 F 08/13/24 04:00 Pulse 84 08/13/24 04:00 Resp 18 08/13/24 04:00 BP 110/68 08/13/24 04:00 Pulse Ox 97 08/13/24 04:00 FiO2 Intake & Output 08/12/24 08/13/24 08/13/24 18:59 06:59 18:59 Intake Total 898 30 Balance 898 30 Weight 144.9 kg Intake: IV 30 0.9 10 Invasive Line 1 20 Oral 898 Other: # Voids 2 - Labs CBC & Chem 7: 08/13/24 05:37 08/13/24 05:37 Labs: Abnormal Lab Results - Last 24 Hours (Table) 08/13/24 08/13/24 Range/Units 05:37 05:37 MPV 8.5 L (9.5-12.2) fL Sodium 136 L (137-145) mmol/L
--- NOTE | 2024-08-13 13:01 | P.PN ---
Subjective Progress Note Date: 08/13/24 Principal diagnosis: Chest discomfort. This is a very pleasant 43-year-old male patient who has no significant past medical history. And no prescribed home medications. He did smoke lightly for about 10 years but quit 10 years ago. He presented here to the the emergency room yesterday after a 2-month history of sore throat. He states he has had strep throat in the past and it felt similar. He was treated in the outpatient setting on amoxicillin without much improvement. He was then on prednisone on 2 separate occasions without much improvement. He also thought he was coughing up blood that he felt was related to his sinuses as he had sinus congestion and was using Afrin nasal spray. He did state he had some throat and chest discomfort with deep inhalation. Chest x-ray showed no acute pulmonary process. CT angiogram ruled out pulmonary embolism. There is a moderate pericardial effusion. CT scan of the neck revealed a mild wall thickening along the left h ypopharynx extending from the tonsillar pillar. No discrete masses identified. No abnormal adenopathy. White count 8.2. Hemoglobin 12.9. Platelets 212. Sodium 136. Potassium 4.0. Bicarb 25. BUN 12. Creatinine 0.91. Glucose 113. Rheumatoid factor was negative. NILA and a screen was negative. He did test positive for a probable previous Paty-Mora virus however his IgM is negative. Echocardiogram is pending. He is seen today in consultation on the selective care unit. He is currently sitting up in bed. Awake and alert in no acute distress. Maintaining good O2 saturations in the 90s on room air oxygen. No fever. No chills. No further blood from his nose and no productive sputum. Progress note dated August 13, 2024. This is a 43-year-old male who we saw in consultation yesterday. Please see the consultation above. The patient came into the hospital complaining of strep throat. The patient was treated, but apparently did not improve. Here in the hospital, he had an echocardiogram which showed a pericardial effusion. In addition, he complained of coughing up blood, but in actuality, it was probably blood from a nosebleed. His chest x-ray showed no acute pulmonary process. CT angiogram ruled out PE. On CT scan of the neck area, it revealed a mild wall thickening along the left hypopharynx, extended into the tonsillar pillar. Direct visualization was recommended. Today he is sitting in the chair, next to the hospital bed. He is on room air. No IV fluids. He was given both indomethacin, and colchicine, by cardiology. Current labs include a white count 8.2, hemoglobin 14, hematocrit 40.1, platelet count 238,000. Sodium 136, potassium 4.3, chlorides 105, CO2 25, BUN 13, creatinine 0.97. TSH was normal. Objective - Vital Signs Vital signs: Vital Signs Temp 97.8 F 08/13/24 12:25 Pulse 88 08/13/24 12:25 Resp 18 08/13/24 12:25 BP 130/88 08/13/24 12:25 Pulse Ox 96 08/13/24 12:25 FiO2 Intake & Output 08/12/24 08/13/24 08/13/24 18:59 06:59 18:59 Intake Total 898 30 240 Balance 898 30 240 Weight 144.9 kg Intake: IV 30 0.9 10 Invasive Line 1 20 Oral 898 240 Other: # Voids 2 1 - Exam No acute distress, oriented 3. HEENT examination is grossly unremarkable. Mucous membranes are moist. No oral lesions. Neck supple. Full range of motion. No adenopathy thyromegaly or neck vein distention. Cardiovascular examination reveals regular rhythm rate. S1-S2 normal. No S3 or S4. No discernible murmur noted. Lungs reveal clear breath sounds. Breath sounds are equal bilaterally. No adventitious lung sounds including wheezes rhonchi or crackles. Abdomen soft bowel sounds are heard. No masses or tenderness. Extremities are intact. No cyanosis clubbing or edema. Skin is without rash or lesion. Neurologic examination is brief but nonfocal. - Labs CBC & Chem 7: 08/13/24 05:37 08/13/24 05:37 Labs: Abnormal Lab Results - Last 24 Hours (Table) 08/13/24 08/13/24 Range/Units 05:37 05:37 MPV 8.5 L (9.5-12.2) fL Sodium 136 L (137-145) mmol/L Assessment and Plan Assessment: Chest discomfort on deep inhalation secondary to suspected viral myocarditis. Moderate pericardial effusion noted on CT scan. Recent viral syndrome, rhinitis/pharyngitis and failed outpatient therapy with amoxicillin and steroids. Possible recent Paty-Mora virus however IgM is negative. Nasal congestion and drainage with bleeding from the nose. No evidence of hemoptysis. Mild wall thickening along the left hypothenar hypopharynx extending from the tonsillar pillar. No discrete masses identified. No adenopathy. Former smoker however quit 10 years ago. Plan: Plan dated August 13, 2024. The patient is sitting in a chair next to the hospital bed, room 353. He is on room air. No IV fluids. The patient is feeling a bit better today. He was started on indomethacin, and colchicine, by cardiology. Labs, x-rays, and medications are reviewed. We will continue to follow. The patient is stable from the pulmonary standpoint. He denies any shortness of breath, cough, wheezing, chest tightness, or phlegm production. Prognosis is guarded. Dictation was produced using [employer] software. Please excuse any grammatical, word or spelling errors. Time with Patient: Less than 30
--- NOTE | 2024-08-13 13:21 | P.PN ---
Subjective Progress Note Date: 08/13/24 History of present illness; Patient is a 43-year-old male with no significant medical history presenting for episode of hemoptysis. Patient had 1 episode last night and states he had a stuffy nose and proceeded to take Afrin. He also states blew his nose with mucus with streaks of dried red blood. This morning he had a small amount of dark red blood when he blew his nose. He has been taking prednisone for throat inflammation and irritation since occurrence of strep throat 1 to 2 months ago. He states that pain is worse while laying back and with deep inspiration. He is otherwise asymptomatic and denies chest pain, shortness of breath, sore throat, cough, fever. He is a non-smoker. He reports no other exposure to tuberculosis, no history of autoimmune disease or malignancy. States he has no medical conditions and does not take any medications. 08/12/2024patient seen and examined at bedside. He continues to endorse some neck pain while extending neck, otherwise no chest pain shortness of breath at this time. Continues to have throat irritation, able to swallow without issue. No further episodes of blood with mucus. 08/13/2024patient seen and examined at bedside. Patient is feeling well no other complaints. No chest pain or shortness of breath. REVIEW OF SYSTEMS: Pertinent positives and negatives noted in HPI. PHYSICAL EXAMINATION: VITAL SIGNS: Reviewed GENERAL: Resting comfortably in bed. NECK: No palpable lymph nodes, throat nonerythematous CARDIOVASCULAR: S1 and S2 present. No murmurs, rubs, or gallops. PULMONARY: Chest is clear to auscultation, no wheezing, rhonchi, or crackles. ABDOMEN: Soft, nontender, nondistended. No palpable organomegaly. NEUROLOGICAL: Alert and oriented. Gross neurological examination with no apparent focal deficits. EXTREMITIES: No pedal edema. Today's significant FINDINGS: Labs significant for CBC and BMP unremarkable Echocardiogram with findings of EF 30 to 35%, severe global hypokinesis of the left ventricle and dilated left ventricle, mild mitral and tricuspid regurgitation, small to moderate pericardial effusion ASSESSMENT AND PLAN: In summary, patient is a 43-year-old male with no significant medical history presenting for episode of hemoptysis. #Acute pericarditis with pericardial effusion #New CHF with systolic dysfunction, EF 30 to 35% CT angiogram chest with moderate pericardial effusion seen Continuous cardiac monitoring Echocardiogram EF 30 to 35%, severe global hypokinesis of the left ventricle and dilated left ventricle, mild mitral and tricuspid regurgitation, small to moderate pericardial effusion Troponin, TSH, coxsachie b, parvovirus b19, HIV, CMV, NILA, anti-CCP, compliments 3,4,50 , ESR, CRP, ANCAs, RF, complete viral panel are WNL thus far, positive for EBV IgG Continue colchicine and Indocin Begin Farxiga 10 mg daily, lisinopril 5 mg daily, metoprolol 25 mg daily Cardiology following #Epistaxis, with recent viral syndrome rhinitis/pharyngitis #Paty-Mora virus infection, likely old - CT neck soft tissue w/ contrast w/ mild wall thickening along the left hypopharynx extending from the tonsillar pillar - positive for EBV IgG Monitor CBC Pulmonology consult, no bronchoscopy at this time, follow-up with ENT #Leukocytosis, likey do to steroid use, improved Chronic Medical Conditions: -No home medications DVT ppx: Early ambulation Code status: Full code F: P.o. E: Replete as needed N: Regular diet A: Ambulatory Anticipated discharge time and place: Home, tomorrow Ash Vieyra MD Internal Medicine Resident, PGY1 Dictation was produced using [employer] dictation software. Please excuse any grammatical, word or spelling errors. I have seen and evaluated the patient today. Discussed with the resident and agree with the residents finding and plan as documented in the resident's note. Changes highlighted in blue font. Objective - Vital Signs Vital signs: Vital Signs Temp 97.7 F 08/13/24 04:00 Pulse 84 08/13/24 04:00 Resp 18 08/13/24 04:00 BP 110/68 08/13/24 04:00 Pulse Ox 97 08/13/24 04:00 FiO2 Intake & Output 08/12/24 08/13/24 08/13/24 18:59 06:59 18:59 Intake Total 898 30 Balance 898 30 Weight 144.9 kg Intake: IV 30 0.9 10 Invasive Line 1 20 Oral 898 Other: # Voids 2 - Labs CBC & Chem 7: 08/13/24 05:37 08/13/24 05:37 Labs: Abnormal Lab Results - Last 24 Hours (Table) 08/13/24 08/13/24 Range/Units 05:37 05:37 MPV 8.5 L (9.5-12.2) fL Sodium 136 L (137-145) mmol/L
[2024-08-14 04:39] LABS: Parvovirus B-19 IgG Antibodies 3.93 INDEX (<=0.90); Parvovirus B-19 IgM Antibodies 0.28 INDEX (<=0.90)
[2024-08-14 08:53] VITALS: BP 121/76; PULSE 109; RESP 16; TEMP 98.2
--- NOTE | 2024-08-14 09:13 | P.DS ---
Providers Date of admission: 08/11/24 15:22 Expected date of discharge: 08/14/24 Attending physician: hCina Arevalo MD Consults: 08/11/24 15:33 Consult Physician Urgent Consulting Provider: [facility] Consult Reason/Comments: Pericardial effusion Do you want consulting provider notified?: Yes 08/12/24 09:43 Consult Physician Routine Consulting Provider: Ash Jiménez Consult Reason/Comments: hemotysis Do you want consulting provider notified?: Yes Primary care physician: Aster Figueroa MD Hospital Course: Discharge diagnoses; #Acute pericarditis with pericardial effusion #New CHF with systolic dysfunction, EF 30 to 35% #Epistaxis, with recent viral syndrome rhinitis/pharyngitis #Paty-Mora virus infection, likely old #Leukocytosis, likey do to steroid use Hospital course; History of present illness; Patient is a 43-year-old male with no significant medical history presenting for episode of hemoptysis. Patient had 1 episode last night and states he had a stuffy nose and proceeded to take Afrin. He also states blew his nose with mucus with streaks of dried red blood. This morning he had a small amount of dark red blood when he blew his nose. He has been taking prednisone for throat inflammation and irritation since occurrence of strep throat 1 to 2 months ago. He states that pain is worse while laying back and with deep inspiration. He is otherwise asymptomatic and denies chest pain, shortness of breath, sore throat, cough, fever. He is a non-smoker. He reports no other exposure to tuberculosis, no history of autoimmune disease or malignancy. States he has no medical conditions and does not take any medications. During hospital stay patient was treated for acute pericarditis with pericardial effusion. Echocardiogram with findings of EF 30 to 35%, severe global hypokinesis of the left ventricle and dilated left ventricle, mild mitral and tricuspid regurgitation, small to moderate pericardial effusion. EBV IgG was positive, however unable to determine timing of infection. He was seen by cardiology and started on colchicine and Indocin. He had no other episodes of epistaxis. CT neck soft tissue w/ contrast w/ mild wall thickening along the left hypopharynx extending from the tonsillar pillar. He was seen by pulmonology who recommended follow-up with ENT. Patient discharged home in stable condition. He will continue lisinopril 5 mg daily, metoprolol 25 mg daily, colchicine 0.6 mg twice daily. Continue Indocin 25 mg 3 times daily and can discontinue with symptomatic improvement. He will need to follow-up with PCP and cardiology, and ENT. PHYSICAL EXAMINATION: VITAL SIGNS: Reviewed GENERAL: Resting comfortably in bed. NECK: No palpable lymph nodes, throat nonerythematous CARDIOVASCULAR: S1 and S2 present. No murmurs, rubs, or gallops. PULMONARY: Chest is clear to auscultation, no wheezing, rhonchi, or crackles. ABDOMEN: Soft, nontender, nondistended. No palpable organomegaly. NEUROLOGICAL: Alert and oriented. Gross neurological examination with no apparent focal deficits. EXTREMITIES: No pedal edema. Ash Vieyra MD Internal Medicine Resident, PGY1 Dictation was produced using [employer] dictation software. please excuse any grammatical, word or spelling errors. A total of 38 minutes of time were spent preparing this complex discharge summary. Patient was discharged on 08/14/2024 at 841. I have seen and evaluated the patient today. Discussed with the resident and agree with the residents finding and plan as documented in the resident's note. Changes highlighted in blue font Patient Condition at Discharge: Stable Plan - Discharge Summary Discharge Rx Participant: Yes New Discharge Prescriptions: New Indomethacin [Indocin] 25 mg PO TID #90 cap Metoprolol Succinate (ER) [Toprol XL] 25 mg PO DAILY #30 tab lisinopriL [Zestril] 5 mg PO DAILY #30 tab Colchicine [Colcrys] 0.6 mg PO BID #60 each Discontinued predniSONE See Taper PO DIRECTED Discharge Medication List Colchicine [Colcrys] 0.6 mg PO BID #60 each 08/14/24 [Rx] Indomethacin [Indocin] 25 mg PO TID #90 cap 08/14/24 [Rx] Metoprolol Succinate (ER) [Toprol XL] 25 mg PO DAILY #30 tab 08/14/24 [Rx] lisinopriL [Zestril] 5 mg PO DAILY #30 tab 08/14/24 [Rx] Follow up Appointment(s)/Referral(s): Aster Figueroa MD [Primary Care Provider] - 1-2 days Enzo Morales MD [STAFF PHYSICIAN] - 1 Week Jamal Falk MD [STAFF PHYSICIAN] - 4 Weeks Patient Instructions/Handouts: Acute Pericarditis (DC), Pericardial Effusion (DC) Activity/Diet/Wound Care/Special Instructions: He will continue lisinopril 5 mg daily, metoprolol 25 mg daily, colchicine 0.6 mg twice daily. Continue Indocin 25 mg 3 times daily and can discontinue with chest and neck discomfort symptomatic improvement after 1 to 2 weeks. He will need to follow-up with PCP and cardiology, and ENT. Discharge Disposition: HOME SELF-CARE
--- NOTE | 2024-08-14 14:30 | P.PN ---
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 We have been asked to evaluate the patient for pericardial effusion. Patient gives history of having strep throat 1 month ago. He is also had some pressure in his chest on the upper anterior area. It is most severe when he takes a deep inhalation. He denies any pain when he moves forward. He does have some worsening of the pain when he lays back on the bed. He has been through at least 2 courses of prednisone. He also was concerned that he had a recent bouts of poison dash but it may be that he had a rash related to the strep throat. He denies history of tobacco use, alcohol use or illicit drug use. Blood pressure 130/79, heart rate 107, pulse ox 96% on room air. Patient presented to the hospital due to hemoptysis. -EKG: Sinus tachycardia no acute ST-T wave changes. -Chest x-ray: No acute process -CT soft tissue of the neck: Mild wall thickening along the left hypopharynx extending from the tonsillar pillar. No discrete masses identified. Abnormal adenopathy is not evident. -CTA chest: No pulmonary embolism. Moderate pericardial effusion. -Laboratory studies: WBC 10.7 now 8.2, hemoglobin 12.9, sed rate 34, CRP 6.4. Troponin negative x 1. Sodium 136, electrolytes otherwise are normal. Renal function normal. TSH 1.560. EBV IgG positive. Cepheid viral panel not detected. Group A strep not detected. -Home cardiac medications: None. 08/13/2024 Patient seen and examined. Echocardiogram reveals EF 30-35%. Severe global hypokinesis of the left ventricle with dilated left ventricle. Mild mitral and tricuspid regurgitation. Small to moderate pericardial effusion. Patient is had no previous echocardiogram for comparison. He states he is not really feeling any better with the colchicine and Indocin. He seemed to get more relief from prednisone. Blood pressure 120/77, heart rate 92, pulse ox 97% on room air. Results of echocardiogram reviewed with the patient. 08/14/2024 Patient seen and examined. He continues to state that he is feeling okay but still has this chest pain in the upper anterior chest area. He has been continued on Indocin and colchicine which will be continued postdischarge. Plan is for him to follow-up in the office in 4 weeks. Blood pressure 121/76, heart rate 109, pulse ox 94% on room air. Physical examination: Gen: This is a 43-year-old male in no acute distress VS: reviewed HEENT: Head is atraumatic, normocephalic. Pupils equal, round. Sclerae is anicteric. NECK: Supple. No JVD. LUNGS: Clear to auscultation. No wheezes or rhonchi. No intercostal retra ctions. HEART: Regular rate and rhythm. No murmur. ABDOMEN: Soft No tenderness. EXTREMITIES: No pedal edema. No calf tenderness. NEUROLOGICAL: Patient is awake, alert and oriented x3. Assessment: Pericarditis, acute or subacute Small to moderate pericardial effusion Paty bar virus infection recent Cardiomyopathy possibly secondary to viral infection Plan: Continue patient on colchicine 0.6 mg twice daily and Indocin 25 mg 3 times daily Patient is cleared from a cardiology perspective for discharge and will follow- up in the office with Dr. Falk in 4 weeks. Nurse practitioner note has been reviewed, I agree with documented findings and plan of care. Patient was seen and examined. Objective - Vital Signs Vital signs: Vital Signs Temp 98.3 F 08/14/24 04:00 Pulse 101 H 08/14/24 04:00 Resp 18 08/14/24 04:00 BP 99/67 08/14/24 04:00 Pulse Ox 98 08/14/24 04:00 FiO2 Intake & Output 08/13/24 08/14/24 08/14/24 18:59 06:59 18:59 Intake Total 600 10 436 Balance 600 10 436 Weight 143.2 kg Intake: IV 10 0.9 10 Oral 600 436 Other: # Voids 3 - Labs CBC & Chem 7: 08/13/24 05:37 08/13/24 05:37 Labs: Abnormal Lab Results - Last 24 Hours (Table) 08/11/24 08/11/24 Range/Units 18:05 18:05 Tot Complement (CH50) >99 H (42 - 95) U/mL Parvovirus B19 IgG Ab 3.93 H (<=0.90) INDEX
--- NOTE | 2024-08-18 09:42 | CDI ---
Documentation Clarification Form Date: 08/18/2024 From: Rosalva Perry Admit Date: 08/11/2024 03:22:00 PM Patient Name: Quinton Parnell Visit Number: [id number] Discharge Date: 08/14/2024 10:02:00 AM ATTENTION: The Clinical Documentation Specialists (CDI) and [facility] Coding Staff appreciate your assistance in clarifying documentation. Please respond to the clarification below the line at the bottom and electronically sign. The CDI & [facility] Coding staff will review the response and follow-up if needed. Please note: Queries are made part of the Legal Health Record. If you have any questions, please contact the author of this message via ITS. Doctor/Provider: Harry Carrion Per Hospital Course DCS and PN 08/13/24 "New CHF with systolic dysfunction EF 30 to 35%. Additional information regarding the [type, acuity] of CHF is requested. History/Risk Factors: Pericardial effusion and pericarditis Clinical Indicators: VS/Pulse OX: 97 and 98% on RA Echocardiogram Results: EF 30% - 35% Chest X Ray: Moderate Pericardial Effusion Treatment: Farxiga In your professional opinion, can you please clarify the [acuity and type] of CHF if known? [ xx] Acute Systolic Heart Failure (reduced EF) [ ] Chronic Systolic Heart Failure (reduced EF) [ ] Acute on Chronic Systolic Heart Failure (reduced EF) [ ] CHF ruled out [ ] Acute Systolic & Diastolic Heart Failure [ ] Chronic Systolic & Diastolic Heart Failure [ ] Acute on Chronic Heart Failure Systolic & Diastolic Heart Failure [ ] Other, please specify [ ] Unable to determine MTDD
== END 2024-08-14 10:02 | disposition home or self-care (01) | DRG 207 ==
LOC: EC 11:37 → 3SCARD 15:22
PROVIDERS: ADMIT Student in an Organized Health Care Education/Training Program; ATTEND Student in an Organized Health Care Education/Training Program
DX: I30.9 Acute pericarditis, unspecified (principal); B34.3 Parvovirus infection, unspecified; I50.21 Acute systolic (congestive) heart failure; I42.9 Cardiomyopathy, unspecified; I50.20 Unspecified systolic (congestive) heart failure; B27.00 Gammaherpesviral mononucleosis without complication; R04.0 Epistaxis; J02.0 Streptococcal pharyngitis; Z79.899 Other long term (current) drug therapy; Z87.891 Personal history of nicotine dependence; R04.2 Hemoptysis; D72.829 Elevated white blood cell count, unspecified; J31.0 Chronic rhinitis; Z28.310 Unvaccinated for COVID-19; Z11.52 Encounter for screening for COVID-19; Z28.21 Immunization not carried out because of patient refusal
CPT/HCPCS: 36415; 70491; 71046; 71275; 80048; 80053; 84443; 84484; 85025; 85027; 85379; 85610; 85652; 85730; 86038; 86140; 86160; 86162; 86255; 86431; 86618; 86644; 86645; 86658; 86663; 86664; 86665; 86747; 87390; 87496; 87498; 87502; 87529; 87634; 87635; 87636; 87651; 87798; 93005; 93306; 99285